=== PATIENT | female | born 1945 | race Caucasian/White ===

== ENCOUNTER → 2017-09-22 | Outpatient (CLI) | payer MEDICARE, OTHER ==
--- NOTE | 2017-09-23 07:47 | XCELERA REPORT ---
[address] [place] [address] Lower Extremity Venous Evaluation Name: LILY GRAY Age: 72 yrs Gender: Female : 1945 Patient Status: Outpatient Patient Location: Study Date: 09/22/2017 02:16 PM Procedure: Color flow and duplex imaging of the veins of the right lower extremity as well as the left Common Femoral vein. Reason For Study: PAIN RLE Ordering Physician: JOSE LARSEN PA-C Performed By: Brandi Cool Right Sided Venous Evaluation Normal vessel filling wall to wall, compression and augmentation as well as Colour flow down to the infrageniculate veins. Left Sided Venous Evaluation The left common femoral vein is fully compressible. Spontaneous and phasic flow is present in the left common femoral vein. Interpretation Summary No duplex evidence of DVT or obstruction in the right lower extremity nor in the left Common Femoral vein. : JOSE LARSEN PA-C > Francisco Javier Verde
--- NOTE | 2017-09-23 10:05 | XCELERA REPORT ---
[address] [place] [address] Lower Extremity Arterial Evaluation Name: LILY GRAY Age: 72 yrs Gender: Female : 1945 Patient Status: Outpatient Patient Location: Study Date: 09/22/2017 02:30 PM Procedure: A color flow and duplex scan of the lower extremity arteries was performed on the right with velocity and waveform anaylsis. 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 0 % stenosis . Ankle Brachial index is 1.08. Left Side Arterial Evaluation Very limited study with triphasic signal at the Dorsalis Pedis. Interpretation Summary No hemodynamically significant lesions in the right lower extremity only, on duplex imaging, at rest. : JOSE LARSEN PA-C > Francisco Javier Verde
== END ==
LOC: SP 13:44
PROVIDERS: ATTEND Physician Assistant
DX: M79.661 Pain in right lower leg (principal)
CPT/HCPCS: 93926; 93971

== ENCOUNTER 2018-08-16 11:14 | Emergency (ER) | payer MEDICARE, OTHER ==
--- NOTE | 2018-08-16 12:06 | ER Document Report ---
ED Medical Screen (RME) - General Chief Complaint: Back Pain Stated Complaint: SIDE/LEG PAIN Time Seen by Provider: 08/16/18 12:03 Notes: Patient says that she is been having pain in her right epigastrium and right upper quadrant and into the right back and flank region for the past 3-4 weeks. Pain seems to go down the front of her right thigh, as well. Wednesday, she went to a local urgent care and they checked her urine and told her it was okay but put her on Cipro thinking that she might have an infection in her intestinal tract. Patient denies any nausea or vomiting. She had some diarrhea this morning. No blood in her bowel movements. Patient has had her gallbladder removed as well hysterectomy. Has not had any fevers. No urinary tract symptoms. Patient did bring a small brown speck of something that she passed with her bowel movement, although she had also urinated in the bowl is not sure kidney stone. It is about 3-4 mm in size. Patient has not had any skin rashes in the area where any of these pains are located. Patient has a history of hypertension and high cholesterol. TRAVEL OUTSIDE OF THE [place] IN LAST 30 DAYS: No - Related Data Allergies/Adverse Reactions: No Known Allergies Allergy (Verified 04/30/15 09:18) Past Medical History - Social History Frequency of alcohol use: None Drug Abuse: None - Past Medical History Cardiac Medical History: Reports: Hx Hypercholesterolemia, Hx Hypertension Denies: Hx Heart Attack Pulmonary Medical History: Denies: Hx Asthma Neurological Medical History: Denies: Hx Cerebrovascular Accident, Hx Seizures Renal/ Medical History: Denies: Hx Peritoneal Dialysis GI Medical History: Reports: Hx Gastroesophageal Reflux Disease, Hx Ulcer - hx of. Denies: Hx Hepatitis, Hx Hiatal Hernia Psychiatric Medical History: Reports: Hx Anxiety Infectious Medical History: Denies: Hx Hepatitis Past Surgical History: Reports: Hx Cholecystectomy, Hx Hysterectomy. Denies: Hx Mastectomy, Hx Open Heart Surgery, Hx Pacemaker - Immunizations Hx Diphtheria, Pertussis, Tetanus Vaccination: Yes Physical Exam - Vital signs Vitals: Temp Pulse Resp BP Pulse Ox 97.6 F 57 L 19 151/45 H 99 08/16/18 11:37 08/16/18 11:37 08/16/18 11:37 08/16/18 11:37 08/16/18 11:37 Course - Vital Signs Vital signs: Temp Pulse Resp BP Pulse Ox 97.6 F 57 L 19 151/45 H 99 08/16/18 11:37 08/16/18 11:37 08/16/18 11:37 08/16/18 11:37 08/16/18 11:37 Doctor's Discharge - Discharge Referrals: JOSE LARSEN PA-C [Primary Care Provider] - Follow up as needed
[2018-08-16] MEDS ORDERED: ONDANSETRON HCL INJ/PF 4 MG/2 ML SDV IV ONE (12:22)
[2018-08-16] MEDS ORDERED: FENTANYL CITRATE INJ/PF 100 MCG/2 ML AMPUL IV ONE (12:22)
--- NOTE | 2018-08-16 12:22 | ER Document Report ---
ED General - General Chief Complaint: Back Pain Stated Complaint: SIDE/LEG PAIN Time Seen by Provider: 08/16/18 12:03 Mode of Arrival: Ambulatory Information source: Patient Notes: 73-year-old female presents emergency department with complaints of a 4-week history of abdominal pain. Patient states that it is located in the right flank area. She describes it as a dull aching sensation. She states that it radiates into the RUQ, epigastric area and into the right lower quadrant area, suprapubic area. The pain then extends down into the thigh. No alleviating or exacerbating factors. Patient states that she went to an urgent care on Wednesday and had her urine checked. She was started on Cipro for possible infection in her intestinal tract as no infection was seen in the urine. She denies any nausea, vomiting, diarrhea, constipation. Patient states that she has had a cholecystectomy and a hysterectomy. Patient states that she did eat this morning. Hx of hypertension. Dr. Richards is primary care physician. TRAVEL OUTSIDE OF THE [place] IN LAST 30 DAYS: No - HPI Onset: Other - 4 weeks. Onset/Duration: Intermittent Quality of pain: Achy, Dull Severity: Moderate Associated symptoms: None Exacerbated by: Denies Relieved by: Denies Similar symptoms previously: No Recently seen / treated by doctor: Yes - Related Data Allergies/Adverse Reactions: No Known Allergies Allergy (Verified 04/30/15 09:18) Past Medical History - General Information source: Patient - Social History Smoking Status: Never Smoker Frequency of alcohol use: None Drug Abuse: None Family History: CAD - Mother-[place] Patient has suicidal ideation: No Patient has homicidal ideation: No - Past Medical History Cardiac Medical History: Reports: Hx Hypercholesterolemia, Hx Hypertension Denies: Hx Heart Attack Pulmonary Medical History: Denies: Hx Asthma Neurological Medical History: Denies: Hx Cerebrovascular Accident, Hx Seizures Renal/ Medical History: Denies: Hx Peritoneal Dialysis GI Medical History: Reports: Hx Gastroesophageal Reflux Disease, Hx Ulcer - hx of. Denies: Hx Hepatitis, Hx Hiatal Hernia Psychiatric Medical History: Reports: Hx Anxiety Infectious Medical History: Denies: Hx Hepatitis Past Surgical History: Reports: Hx Cholecystectomy, Hx Hysterectomy. Denies: Hx Mastectomy, Hx Open Heart Surgery, Hx Pacemaker - Immunizations Hx Diphtheria, Pertussis, Tetanus Vaccination: Yes Hx Pneumococcal Vaccination: 08/16/10 Review of Systems - Review of Systems Constitutional: No symptoms reported EENT: No symptoms reported Cardiovascular: No symptoms reported Respiratory: No symptoms reported Gastrointestinal: No symptoms reported Genitourinary: Flank pain Female Genitourinary: No symptoms reported Musculoskeletal: No symptoms reported Skin: No symptoms reported Hematologic/Lymphatic: No symptoms reported Neurological/Psychological: No symptoms reported -: Yes All other systems reviewed and negative Physical Exam - Vital signs Vitals: Temp Pulse Resp BP Pulse Ox 97.6 F 57 L 19 151/45 H 99 08/16/18 11:37 08/16/18 11:37 08/16/18 11:37 08/16/18 11:37 08/16/18 11:37 - Notes Notes: PHYSICAL EXAMINATION: GENERAL: Well-appearing, well-nourished and in no acute distress. HEAD: Atraumatic, normocephalic. EYES: Pupils equal round and reactive to light, extraocular movements intact, conjunctiva are normal. ENT: Nares patent, oropharynx clear without exudates. Moist mucous membranes. NECK: Normal range of motion, supple without lymphadenopathy LUNGS: Breath sounds clear to auscultation bilaterally and equal. No wheezes rales or rhonchi. HEART: Regular rate and rhythm without murmurs ABDOMEN: Soft, tenderness to palpation in the right upper quadrant, right lower quadrant, epigastric area, suprapubic area. No rebound or guarding. Normal active bowel sounds. Female : deferred Musculoskeletal: Normal range of motion, no pitting or edema. No cyanosis. NEUROLOGICAL: Cranial nerves grossly intact. Normal speech, normal gait. Normal sensory, motor exams PSYCH: Normal mood, normal affect. SKIN: Warm, Dry, normal turgor, no rashes or lesions noted. Course - Re-evaluation Re-evalutation: 08/16/18 17:11 Labs and imaging obtained. White blood cell count is normal. No signs of infection in the urine. No blood in the urine. A CT abdomen pelvis with IV and p.o. contrast was done. A right cortical cyst was appreciated as well as a fatty liver. The appendix was not visualized. I reevaluated the patient. She continues to have diffuse pain located in the epigastric, right upper quadrant, right flank, right lower quadrant, suprapubic area. The pain is not localized to the right lower quadrant. No peritoneal signs. As the patient does not have an elevated white blood cell count and is afebrile my index of suspicion for appendicitis is low. I did discuss the CT results with the patient. I told her that she does have a right cortical cyst. This could be what is causing her discomfort. I told her that if she begins having worsening pain or runs a fever that she needs to return to the emergency department for possible appendicitis. I instructed the patient to follow-up with her primary care physician this week for reevaluation, to return to the emergency department for worsening symptoms, and to take the medication prescribed as directed. The patient is comfortable with plan of care. 08/16/18 17:13 - Vital Signs Vital signs: Temp Pulse Resp BP Pulse Ox 97.6 F 57 L 19 151/45 H 99 08/16/18 11:37 08/16/18 11:37 08/16/18 11:37 08/16/18 11:37 08/16/18 11:37 - Laboratory Result Diagrams: 08/16/18 12:23 08/16/18 12:23 Laboratory results interpreted by me: 08/16/18 12:23 Sodium 135.0 L Potassium 3.5 L AST 44 H Discharge - Discharge Clinical Impression: Cyst of right kidney Abdominal pain Qualifiers: Abdominal location: unspecified location Qualified Code(s): R10.9 - Unspecified abdominal pain Condition: Good Disposition: HOME, SELF-CARE Instructions: Abdominal Pain ([facility]), Observation for Appendicitis ([facility]) Additional Instructions: Your CT scan shows a right cortical cyst. Please follow-up with your primary care physician for further evaluation and treatment. If he began running fevers, having chills, or worsening pain, please return to the emergency departm ent for reevaluation. Prescriptions: Hydrocodone/Acetaminophen [[place] 5-325 mg Tablet] 1 tab PO Q4 #5 tablet Referrals: JOSE LARSEN PA-C [NURSE PRACTITIONER] - Follow up as needed
[2018-08-16 12:50] LABS: ABSOLUTE EOSINOPHILS # (AUTO) 0.2 10^3/uL (0.0-0.6); ABSOLUTE LYMPHOCYTES (AUTO) 2.4 10^3/uL (0.5-4.7); ABSOLUTE MONOCYTES (AUTO) 0.7 10^3/uL (0.1-1.4); ABSOLUTE NEUT (AUTO) 6.6 10^3/uL (1.7-8.2); BASOPHILS % (AUTO) 0.4 % (0-2); EOSINOPHILS % (AUTO) 1.5 % (0-6); HEMATOCRIT 37.5 % (36.0-47.0); HEMOGLOBIN 13.4 g/dL (12.0-15.5); LYMPHOCYTES % (AUTO) 24.1 % (13-45); MEAN CORPUSCULAR HEMOGLOBIN 28.7 pg (27.0-33.4); MEAN CORPUSCULAR HGB CONC 35.6 g/dL (32.0-36.0); MEAN CORPUSCULAR VOLUME 81 fl (80-97); MONOCYTES % (AUTO) 7.5 % (3-13); PLATELET COUNT 267 10^3/uL (150-450); RED BLOOD COUNT 4.65 10^6/uL (3.72-5.28); SEGMENTED NEUTROPHILS % (AUTO) 66.5 % (42-78); TOTAL CELLS COUNTED % (AUTO) 100 %
[2018-08-16 12:53] LABS: APPEARANCE,URINE CLEAR; BILIRUBIN,URINE NEGATIVE (NEGATIVE); COLOR,URINE YELLOW; GLUCOSE, URINE NEGATIVE (NEGATIVE); KETONES,URINE NEGATIVE (NEGATIVE); LEUKOCYTE ESTERASE,URINE NEGATIVE (NEGATIVE); NITRITE,URINE NEGATIVE (NEGATIVE); PROTEIN,URINE NEGATIVE (NEGATIVE); URINE SPECIFIC GRAVITY 1.006; UROBILINOGEN,URINE NEGATIVE mg/dL (<2.0)
[2018-08-16 13:04] LABS: ALANINE AMINOTRANSFERASE 43 U/L (9-52); ALBUMIN 4.4 g/dL (3.5-5.0); ALKALINE PHOSPHATASE 63 U/L (38-126); ANION GAP 10 (5-19); ASPARTATE AMINO TRANSFERASE 44 U/L (14-36); BILIRUBIN,DIRECT 0.2 mg/dL (0.0-0.4); BILIRUBIN,TOTAL 0.9 mg/dL (0.2-1.3); BLOOD UREA NITROGEN 10 mg/dL (7-20); CALCIUM 9.9 mg/dL (8.4-10.2); CARBON DIOXIDE 27 mmol/L (22-30); CHLORIDE 98 mmol/L (98-107); GLUCOSE 99 mg/dL (75-110); POTASSIUM 3.5 mmol/L (3.6-5.0); TOTAL PROTEIN 7.3 g/dL (6.3-8.2)
[2018-08-16] MEDS ORDERED: NORMAL SALINE 1000 ML 1,000 ML IV ONE (13:41)
--- NOTE | 2018-08-16 15:47 | RADIOLOGY REPORT (SQ) ---
EXAM DESCRIPTION: CT ABD/PELVIS WITH IV ORAL COMPLETED DATE/TIME: 08/16/2018 3:26 pm REASON FOR STUDY: Right upper abdominal pain for 3-4 weeks COMPARISON: 09/10/2015. TECHNIQUE: CT scan of the abdomen and pelvis performed using helical scanning technique with dynamic intravenous contrast injection. No oral contrast. Images reviewed with lung, soft tissue, and bone windows. Reconstructed coronal and sagittal MPR images reviewed. Delayed images for evaluation of the urinary system also acquired. All images stored on PACS. All CT scanners at this facility use dose modulation, iterative reconstruction, and/or weight based d osing when appropriate to reduce radiation dose to as low as reasonably achievable (ALARA). [facility]: Dose Right [facility]: CareDose [facility]: Dose Right [facility]: Teradose 4D [facility]: [employer] CONTRAST TYPE AND DOSE: contrast/concentration: Isovue mg/ml; Total Contrast Delivered: 78.0 ml; To rita Saline Delivered: 67.0 ml RENAL FUNCTION: BUN 10 creatinine 0.6. RADIATION DOSE: CT Rad equipment meets quality standard of care and radiation dose reduction techniq ues were employed. CTDIvol: 6.2 - 8.6 mGy. DLP: 822 mGy-cm.. LIMITATIONS: None. FINDINGS: LOWER CHEST: No significant findings. No nodules or infiltrates. LIVER: Normal size. Mild diffuse fatty infiltration. No masses. No dilated ducts. SPLEEN: Normal size. No focal lesions. PANCREAS: No masses. No significant calcifications. No adjacent inflammation or peripancreatic fluid collections. Pancreatic duct not dilated. GALLBLADDER: Surgically absent. ADRENAL GLANDS: No significant masses or asymmetry. RIGHT KIDNEY AND URETER: Small cortical cyst. No solid masses. No significant calcifications. No hydronephrosis or hydroureter. LEFT KIDNEY AND URETER: No solid masses. No significant calcifications. No hydronephrosis or hydr oureter. AORTA AND VESSELS: No aneurysm. No dissection. Renal arteries, SMA, celiac without stenosis. RETROPERITONEUM: No retroperitoneal adenopathy, hemorrhage or masses. BOWEL AND PERITONEAL CAVITY: No masses or inflammatory changes. No free fluid or peritoneal masses. APPENDIX: Not visualized. PELVIS: No mass. No free fluid. Normal bladder. ABDOMINAL WALL: No masses. No hernias. BONES: No significant or acute findings. OTHER: No other significant finding. IMPRESSION: 1. CORTICAL CYST IN THE RIGHT KIDNEY. 2. FATTY INFILTRATION OF THE LIVER. 3. NO OTHER SIGNIFICANT OR ACUTE FINDING IN THE ABDOMEN OR PELVIS ON CT SCAN WITH IV CONTRAST. TECHNICAL DOCUMENTATION: JOB ID: [id number] Quality ID # [id number]: Final reports with documentation of one or more dose reduction techniques (e.g., Au tomated exposure control, adjustment of the mA and/or kV according to patient size, use of iterative reconstruction technique) 2010 [employer]- All Rights Reserved Reading location - IP/workstation name: [email or web address]
[2018-08-16 18:11] VITALS: BP 116/58
== END 2018-08-16 17:44 | disposition home or self-care (01) ==
LOC: ER 11:14
DX: R10.9 Unspecified abdominal pain (principal); R10.13 Epigastric pain; R10.11 Right upper quadrant pain; R10.31 Right lower quadrant pain; Q61.01 Congenital single renal cyst; I10 Essential (primary) hypertension; K76.0 Fatty (change of) liver, not elsewhere classified; Z90.49 Acquired absence of other specified parts of digestive tract; Z90.710 Acquired absence of both cervix and uterus; Z87.19 Personal history of other diseases of the digestive system
CPT/HCPCS: 99284; 96361; 96374; 96375; 36415; 83690; 85025; 80053; 81001; 74177; J3010; J2405; J7030

== ENCOUNTER → 2019-05-08 | Outpatient (CLI) | payer MEDICARE, OTHER ==
--- NOTE | 2019-05-08 16:55 | RADIOLOGY REPORT (SQ) ---
EXAM DESCRIPTION: HIP RIGHT AP/LATERAL COMPLETED DATE/TIME: 05/08/2019 2:12 pm REASON FOR STUDY: PAIN IN RIGHT HIP M25.551 PAIN IN RIGHT HIP COMPARISON: None. NUMBER OF VIEWS: Two views. TECHNIQUE: AP pelvis and additional frog-leg view of the right hip. LIMITATIONS: None. FINDINGS: MINERALIZATION: Normal. RIGHT HIP: No fracture or dislocation. The joint space appears preserved. LEFT HIP: No fracture or dislocation. PUBIS AND ISCHIUM: The ilioischial and iliopectineal lines are intact. There is no diastasis of the pubic symphysis. PELVIS: No fracture. SACRUM: Limited evaluation. LOWER LUMBAR SPINE: The L4-L5 intervertebral disc space is narrowed and there is associated subchondr al sclerosis and endplate osteophyte formation. SOFT TISSUES: No findings. OTHER: No other finding. IMPRESSION: No acute fracture or dislocation of the right hip. TECHNICAL DOCUMENTATION: JOB ID: [id number] [employer]- All Rights Reserved Reading location - IP/workstation name: [email or web address]
== END ==
LOC: OD 13:56
PROVIDERS: ATTEND Internal Medicine
DX: M25.551 Pain in right hip (principal)

== ENCOUNTER → 2019-10-17 | Outpatient (CLI) | payer MEDICARE, OTHER ==
--- NOTE | 2019-10-17 13:25 | RADIOLOGY REPORT (SQ) ---
EXAM DESCRIPTION: T SPINE AP/LAT COMPLETED DATE/TIME: 10/17/2019 11:51 am REASON FOR STUDY: OTHER DORSALGIA M54.89 OTHER DORSALGIA COMPARISON: None. NUMBER OF VIEWS: Two views. TECHNIQUE: AP and lateral radiographic images acquired of the thoracic spine. LIMITATIONS: None. FINDINGS: MINERALIZATION: Osteopenic. ALIGNMENT: Normal. No scoliosis. VERTEBRAE: No fracture or bone lesion. Maintained height, normal segmentation. DISCS: Minimal disc disease particularly in the upper thoracic region with small associated osteophyt es. HARDWARE: None in the spine. MEDIASTINUM AND SOFT TISSUES: Normal heart size and aortic contour. No soft tissue abnormality. VISUALIZED LUNG SNYDER: Clear. OTHER: No other significant finding. IMPRESSION: No acute or suspicious findings. As above. TECHNICAL DOCUMENTATION: JOB ID: [id number] 2010 [employer]- All Rights Reserved Reading location - IP/workstation name: [email or web address]
== END ==
LOC: OD 11:36
PROVIDERS: ATTEND Internal Medicine
DX: M54.89 Other dorsalgia (principal)
CPT/HCPCS: 72070